=== PATIENT | male | born 1970 | race Caucasian/White ===

== ENCOUNTER → 2020-11-03 | Outpatient (CLI) | payer OTHER ==
[2020-11-03 17:06] LABS: HCT 52.4 % (39.6-50.0); MCH 30.5 pg (27.0-32.0); MCHC 34.4 g/dL (32.0-37.0); MCV 88.8 fL (80.0-97.0); Mean Platelet Volume 11.5 fL (9.5-12.2); Platelet Count 260 X 10*3/uL (140-440); RDW 12.5 % (11.5-14.5); WBC 9.09 X 10*3/uL (4.50-10.00)
[2020-11-03 17:12] LABS: Albumin 4.2 g/dL (3.80-4.90); Anion Gap 7.5 mmol/L (4.00-12.00); BUN/Creat Ratio 6.67 Ratio (12.00-20.00); Calcium 8.9 mg/dL (8.7-10.3); Carbon Dioxide 29.5 mmol/L (21.6-31.8); Chol/HDL Ratio 4.25; Globulin 2.1 g/dL (1.6-3.3); LDL Cholesterol,Calculated 80.8 mg/dL (0.0-131.0); Non-African American GFR(CKD) 99.2 (60.0-200.0); Potassium 3.9 mmol/L (3.5-5.5); Total Bilirubin 0.6 mg/dL (0.2-1.2); Total Protein 6.3 g/dL (6.2-8.2); VLDL Calculation 23.2 mg/dL (5.00-40.00)
[2020-11-03 17:20] LABS: Prostate Specific Antigen 0.5 ng/mL (0.0-3.5); T4, Free (Free Thyroxine) 1.3 ng/dL (0.80-1.80)
== END | disposition home or self-care (01) ==
LOC: LABWHC1 08:25
PROVIDERS: ATTEND Family Medicine
DX: Z00.00 Encounter for general adult medical examination without abnormal findings (principal); U07.1 COVID-19
CPT/HCPCS: 36415; 80053; 80061; 84153; 84439; 84443; 85027; 86769

== ENCOUNTER 2021-04-22 07:14 | Day surgery (SDC) | payer OTHER ==
[2021-04-21 09:17] VITALS: BMI 26.4
[~2021-04-22 07:14] MED LIST: LACTATED RINGERS 1,000 ML IV SCH; LIDOCAINE 1% (10MG/ML) FOR IV START INTRADERMA PRN
[2021-04-22 07:26] VITALS: TEMP 96.3
[2021-04-22 07:40] LABS: Glucose,Whole Blood 118 mg/dL (75-99)
[2021-04-22] MEDS ORDERED: PROPOFOL 10 MG/ML 20 ML VIAL IV ONE (08:37)
--- NOTE | 2021-04-22 08:43 | P.GSHP ---
History of Present Illness H&P Date: 04/22/21 Chief Complaint: screening colonoscopy this is a 50-year-old male who presents today for screening colonoscopy. Patient denies any significant GI complaints. Past Medical History Past Medical History: Diabetes Mellitus, Hyperlipidemia, Hypertension History of Any Multi-Drug Resistant Organisms: None Reported Past Surgical History: No Surgical Hx Reported Past Anesthesia/Blood Transfusion Reactions: No Reported Reaction Additional Past Anesthesia/Blood Transfusion Reaction / Comment(s): NO PRIOR SURGICAL OR ANESTHESIA HX Smoking Status: Current every day smoker, Heavy tobacco smoker - Past Family History Father Family Medical History: Cancer Medications and Allergies Home Medications Medication Instructions Recorded Confirmed Type Aliskiren Hemifumarate [Tekturna] 150 mg PO DAILY 04/21/21 04/22/21 History Dapagliflozin Propanediol [Farxiga] 10 mg PO DAILY 04/21/21 04/22/21 History Rosuvastatin [Crestor] 10 mg PO DAILY 04/21/21 04/22/21 History hydroCHLOROthiazide [Hydrodiuril] 25 mg PO DAILY 04/21/21 04/22/21 History metFORMIN HCL 500 mg PO DAILY 04/21/21 04/22/21 History Allergies Allergy/AdvReac Type Severity Reaction Status Date / Time No Known Allergies Allergy Verified 04/21/21 09:10 Surgical - Exam Vital Signs Temp Pulse Resp BP Pulse Ox 96.3 F L 95 16 145/71 96 04/22/21 07:24 04/22/21 07:24 04/22/21 07:24 04/22/21 07:24 04/22/21 07:24 - General well developed, well nourished, no distress - Eyes PERRL - ENT normal pinna - Neck no masses - Respiratory normal expansion, normal respiratory effort - Cardiovascular Rhythm: regular - Abdomen Abdomen: soft, non tender Results - Labs Abnormal Lab Results - Last 24 Hours (Table) 04/22/21 Range/Units 07:36 POC Glucose (mg/dL) 118 H (75-99) mg/dL Assessment and Plan Assessment: we'll perform screening colonoscopy
--- NOTE | 2021-04-22 08:52 | P.OP ---
Date of Procedure: 04/22/21 Preoperative Diagnosis: Greening colonoscopy Postoperative Diagnosis: mild diverticulosis Procedure(s) Performed: colonoscopy Anesthesia: JONI QUIROZ Surgeon: Cas Santiago Pathology: none sent Condition: stable Disposition: PACU Description of Procedure: the patient was placed on the endoscopy table in the lateral position. He received IV sedation. Digital rectal exam was performed which revealed no abnormalities. The flexible colonoscope was then placed patient anus and passed throughout the entire colon. The ileocecal valve was visualized. The cecum, ascending and transverse colon appeared normal. In the descending and sigmoid: There appeared to be evidence of some mild diverticulosis. Scope was then brought back the rectum and this appeared normal. Scope was withdrawn from patient.
[2021-04-22 09:32] VITALS: BP 122/74; PULSE 88; RESP 16
== END 2021-04-22 09:36 | disposition home or self-care (01) ==
LOC: ORWHC2ENDO 07:14
PROVIDERS: ATTEND Surgery
DX: Z12.11 Encounter for screening for malignant neoplasm of colon (principal); K57.30 Diverticulosis of large intestine without perforation or abscess without bleeding; E11.9 Type 2 diabetes mellitus without complications; I10 Essential (primary) hypertension; F17.210 Nicotine dependence, cigarettes, uncomplicated; Z80.9 Family history of malignant neoplasm, unspecified; Z97.2 Presence of dental prosthetic device (complete) (partial); Z98.890 Other specified postprocedural states; Z79.84 Long term (current) use of oral hypoglycemic drugs; Z79.899 Other long term (current) drug therapy
CPT/HCPCS: J2704; G0121

== ENCOUNTER 2022-05-06 11:49 | Emergency (ER) | payer OTHER ==
[2022-05-06 11:55] VITALS: BP 154/94; PULSE 85; RESP 20; TEMP 98.7
--- NOTE | 2022-05-06 12:53 | ED ---
Lower Extremity Injury HPI - General Chief Complaint: Extremity Injury, Lower Stated Complaint: poss dvt rt leg - sent by urgent care Source: patient, RN notes reviewed Mode of arrival: ambulatory Limitations: no limitations - History of Present Illness Initial Comments: Patient is a pleasant 51-year-old male presents to the emergency department by urgent care for evaluation of possible DVT to his right lower extremity. He to presented to the urgent care for evaluation of pain to his right calf which began [place] He states the pain seems to be getting worse and is primarily in the calf region. He denies any trauma swelling, or range of motion impairment not directly related to pain. He has no previous history of blood clots. He has a past medical history significant for diabetes, hypertension and hyperlipidemia; he is a heavy tobacco smoker. - Related Data Home Medications Medication Instructions Recorded Confirmed Aliskiren Hemifumarate [Tekturna] 150 mg PO DAILY 04/21/21 04/22/21 Dapagliflozin Propanediol [Farxiga] 10 mg PO DAILY 04/21/21 04/22/21 Rosuvastatin [Crestor] 10 mg PO DAILY 04/21/21 04/22/21 hydroCHLOROthiazide [Hydrodiuril] 25 mg PO DAILY 04/21/21 04/22/21 metFORMIN HCL 500 mg PO DAILY 04/21/21 04/22/21 Allergies Allergy/AdvReac Type Severity Reaction Status Date / Time No Known Allergies Allergy Verified 05/06/22 11:54 Review of Systems ROS Statement: Those systems with pertinent positive or pertinent negative responses have been documented in the HPI. ROS Other: All systems not noted in ROS Statement are negative. Past Medical History Past Medical History: Diabetes Mellitus, Hyperlipidemia, Hypertension History of Any Multi-Drug Resistant Organisms: None Reported Past Surgical History: No Surgical Hx Reported Past Anesthesia/Blood Transfusion Reactions: No Reported Reaction Additional Past Anesthesia/Blood Transfusion Reaction / Comment(s): NO PRIOR SURGICAL OR ANESTHESIA HX Past Psychological History: No Psychological Hx Reported Smoking Status: Current every day smoker, Heavy tobacco smoker Past Alcohol Use History: None Reported Past Drug Use History: None Reported - Past Family History Father Family Medical History: Cancer General Exam Limitations: no limitations General appearance: alert, in no apparent distress Head exam: Present: atraumatic, normocephalic, normal inspection Eye exam: Present: normal appearance, PERRL, EOMI. Absent: scleral icterus, conjunctival injection, periorbital swelling ENT exam: Present: normal exam, mucous membranes moist Neck exam: Present: normal inspection. Absent: tenderness, meningismus, lymphadenopathy Respiratory exam: Absent: respiratory distress, accessory muscle use Cardiovascular Exam: Present: regular rate GI/Abdominal exam: Absent: distended Extremities exam: Present: calf tenderness (Right). Absent: pedal edema, joint swelling Right Lower Leg exam: Present: full ROM, tenderness. Absent: swelling, ecchymosis, erythema, palpable cord Neurovascular tendon exam: Present: no vascular compromise Gait: observed and limited by pain Back exam: Present: normal inspection Neurological exam: Present: alert, oriented X3, CN II-XII intact Psychiatric exam: Present: normal affect, normal mood Skin exam: Present: warm, dry, intact, normal color, other (Cystic likely chronic right mendez deformity/lesion noted). Absent: rash Course Vital Signs 05/06/22 11:52 Temperature 98.7 F Pulse Rate 85 Respiratory 20 Rate Blood Pressure 154/94 O2 Sat by Pulse 99 Oximetry Medical Decision Making - Medical Decision Making 51-year-old male presenting to the emergency room for further evaluation of A long drive. No redness or swelling. No indication for trauma/injury. Doppler of the right lower extremity ordered by triage nurse. No indication for other laboratory studies are other diagnostic imaging. Doppler lower extremity negative for venous Doppler. Fluid collection noted at chronic fluid collection site. No other acute abnormalities on Doppler. No indication for other diagnostic imaging. Discussed calf strain and encouraged range of motion as tolerated along with anti-inflammatory use. Advised against prolonged sitting or standing with alternation between the 2. Stretching as tolerated encouraged. Will discharge home in stable condition with follow-up with his primary care provider. Case discussed with Dr. Tapia. Disposition Clinical Impression: Pain of right calf Disposition: HOME SELF-CARE Condition: Stable Instructions (If sedation given, give patient instructions): Leg Pain (ED) Additional Instructions: Please utilize ibuprofen or Tylenol for pain as needed. Avoid high impact activities. Please follow-up with your primary care provider. If continued pain in right calf persists follow-up imaging in 3-4 weeks is encouraged. Please return to the Emergency Department if symptoms worsen or any other concerns. Is patient prescribed a controlled substance at d/c from ED?: No Referrals: Edin Alejandra MD [Primary Care Provider] - 1-2 days Time of Disposition: 13:38
--- NOTE | 2022-05-06 13:10 | US ---
EXAMINATION TYPE: US venous doppler duplex LE RT DATE OF EXAM: 05/06/2022 12:57 PM COMPARISON: NONE CLINICAL HISTORY: 51-year-old male swelling. Lump on posterior mid calf that hurts. No redness. No swelling. No injury. No hx DVT. Not on blood thinners. SIDE PERFORMED: Right TECHNIQUE: The lower extremity deep venous system is examined utilizing real time linear array sonog keegan with graded compression, doppler sonography and color-flow sonography. FINDINGS: VESSELS IMAGED: Common Femoral Vein Deep Femoral Vein Greater Saphenous Vein * Femoral Vein Popliteal Vein Small Saphenous Vein * Proximal Calf Veins (* superficial vessels) Right Leg: Negative for DVT. In addition, the palpable area is scanned. There may be a tendon sheath coursing through this area. I t is elongated measuring 3.0 x 2.1 x 1.4 cm and appears to be within the calf musculature. Suspect so me fluid with debris. IMPRESSION: 1. No evidence for DVT within the right lower extremity imaged from the groin to the upper calf. 2. Additional targeted scanning of the patient's right calf lump. This may represent an intramuscular tear or intramuscular hematoma measuring 3.0 x 2.1 x 1.4 cm. Recommend ongoing clinical follow-up of the palpable abnormality. Additional follow-up ultrasound in 3-4 weeks to ensure stability or gradua l involution. If the finding persists or enlarges, contrast enhanced MRI would be recommended.
== END 2022-05-06 13:52 | disposition home or self-care (01) ==
LOC: EC 11:49
DX: M79.661 Pain in right lower leg (principal); I10 Essential (primary) hypertension; E11.9 Type 2 diabetes mellitus without complications; F17.200 Nicotine dependence, unspecified, uncomplicated; Z79.84 Long term (current) use of oral hypoglycemic drugs; Z79.899 Other long term (current) drug therapy
CPT/HCPCS: 99283